=== PATIENT | male | born 1935 | race Caucasian/White ===

== ENCOUNTER 2017-01-18 19:15 | Inpatient (IN) | payer OTHER ==
--- NOTE | 2017-01-18 19:38 | CPEKG ---
Heart Rate: 61 RR Interval: 984 P-R Interval: 164 QRSD Interval: 92 QT Interval: 444 QTC Interval: 448 P Holland: 52 QRS Holland: 42 T Wave Holland: 19 EKG Severity - ABNORMAL ECG - EKG Impression: PACEMAKER SPIKES OR ARTIFACTS EKG Impression: SINUS RHYTHM Electronically Signed By: Nishant Segovia 19-Jan-2017 00:13:25
--- NOTE | 2017-01-18 19:50 | EDPHY ---
H & P Time Seen by Provider: 01/18/17 19:30 HPI/ROS: Chief complaint. Difficulty speaking HPI. 81-year-old male presents with 3 and 0.5 hours initially some speech difficulty and ataxia. Sudden onset this evening at about 5:00 p.m.. Denies chest discomfort or shortness of breath. No abdominal pain. No fever. Denies focal weakness to arms or legs. He felt he was ataxic with both legs. He had word-finding difficulty that it has now improved though he seems somewhat more hoarse than usual. ROS Constitutional. no fever/chills, no weakness Eyes. no problems with vision ENT. no sore throat, no nasal drainage. More hoarse than usual Cardiovascular. no chest pain Respiratory. no shortness of breath, no cough Abdominal. no abdominal pain, no nausea/vomiting, no diarrhea . no problems urinating MS. no calf pain/swelling, no neck/back pain, no joint pain Skin. no rash Lymph. no swollen glands Neuro. Word-finding difficulty, ataxia Past Medical/Surgical History: Denies past medical history. States he takes no medication. No allergies Social History: , nonsmoker, no alcohol Physical Exam: General Appearance: Alert well-developed male mild distress vital signs stable Eyes: Pupils equal and round no pallor or injection. ENT, Mouth: Mucous membranes are moist. Respiratory: There are no retractions, lungs are clear to auscultation. Cardiovascular: Regular rate and rhythm. Gastrointestinal: Abdomen is soft and nontender, no masses, bowel sounds normal. Neurological: Awake and alert, sensory and motor exams grossly normal. Speech is normal but hoarse. Cranial nerves appear to be intact. [id number] is basically intact although somewhat ataxic bilaterally. Vwup-pq-[id number] is intact. There is no pronator drift Skin: Warm and dry, no rashes. Musculoskeletal: Neck is supple nontender. Extremities symmetrical, full range of motion. Psychiatric: Patient is oriented X 3, there is no agitation. Constitutional: Initial Vital Signs Temperature (C) 36.6 C 01/18/17 19:15 Heart Rate 52 L 01/18/17 19:15 Respiratory Rate 14 01/18/17 19:15 Blood Pressure 222/110 H 01/18/17 19:15 O2 Sat (%) 93 01/18/17 19:15 O2 Delivery Mode Room Air Allergies/Adverse Reactions: No Known Allergies Allergy (Unverified 01/18/17 19:47) Home Medications: Medication Instructions Recorded NK [No Known Home Meds] 01/18/17 Medical Decision Making - Diagnostics EKG Interpretation: EKG interpreted by me shows a normal sinus rhythm normal interval and axis. QRS is normal there is no significant ST elevation or depression. No arrhythmia. The rate is 61 Imaging Results: Chest x-ray interpreted by me is unremarkable Noncontrast CT head shows intracranial bleed in the left basal ganglia Procedures: IV normal saline. Monitor. ED Course/Re-evaluation: On serial evaluations patient remains stable. The patient, his family and I discussed imaging and lab results. We discussed treatment plan including need for admission. They expressed understanding and agreement I consulted and discussed case with Dr. Hastings, hospitalist, who agrees to the admission I consulted and discussed the case with Dr. Fontaine, neurosurgery, who will see the patient in consultation Differential Diagnosis: I considered CVA, sepsis, acute coronary syndrome. The patient has an intracranial bleed. He has normal coagulation studies Critical Care Time: Critical care time exclusive procedures 40 minutes - Data Points Laboratory Results: Laboratory Results 01/18/17 19:40 01/18/17 19:40 Medications Given: Discontinued Medications Nicardipine/Sodium Chloride (Cardene 0.1 Mg/Ml (Premix)) 200 mls @ 0 mls/hr IV CONT FRANTZ; Titrate PRN Reason: Protocol Stop: 07/17/17 20:59 Last Admin: 01/18/17 21:09 Dose: 200 mls Nicardipine/Sodium Chloride (Cardene 0.1 Mg/Ml (Premix)) 200 mls @ 0 mls/hr IV CONT FRANTZ; Titrate PRN Reason: Protocol Stop: 07/17/17 23:29 Last Admin: 01/19/17 00:49 Dose: 200 mls Departure - Departure Disposition: [facility] Inpatient Acute Clinical Impression: Thalamic hemorrhage Condition: Fair
[2017-01-18 20:17] LABS: % IMMATURE GRANULYOCYTES 0.2 % (0.0-1.1); ABSOLUTE IMMATURE GRANULOCYTES 0.02 10^3/uL (0.00-0.10); ADD DIFF? NO; ADD MORPH? NO; ADD SCAN? NO; ATYPICAL LYMPHOCYTE FLAG 20 (0-99); FRAGMENT RBC FLAG 0 (0-99); HEMATOCRIT 49.3 % (40.0-51.0); HEMOGLOBIN 16.6 g/dL (13.7-17.5); LEFT SHIFT FLG 0 (0-99); LIPEMIA HEMOLYSIS FLAG 80 (0-99); MEAN CELL HEMOGLOBIN 29.9 pg (27.9-34.1); MEAN CELL HEMOGLOBIN CONCENTR. 33.7 g/dL (32.4-36.7); MEAN CELL VOLUME 88.8 fL (81.5-99.8); PLATELET CLUMPS FLAG 10 (0-99); PLATELET COUNT 219 10^3/uL (150-400); RED BLOOD CELL COUNT 5.55 10^6/uL (4.40-6.38); RED CELL DISTRIBUTION WIDTH 13.8 % (11.5-15.2)
[2017-01-18 20:20] LABS: INR 1.05 (0.83-1.16); PROTIME(PATIENT) 13.6 SEC (12.0-15.0)
[2017-01-18 20:27] LABS: ANION GAP 6 mEq/L (8-16); CALCIUM 8.9 mg/dL (8.5-10.4); CARBON DIOXIDE 28 mEq/l (22-31); CHLORIDE 103 mEq/L (97-110); CREATININE 0.8 mg/dL (0.7-1.3); GLOMERULAR FILTRATION RATE > 60; GLUCOSE 78 mg/dL (70-100); POTASSIUM 4.9 mEq/L (3.5-5.2); SODIUM 137 mEq/L (134-144); SPECIMEN HEMOLYSIS 158
[2017-01-18 20:39] LABS: TROPONIN I 0.027 ng/mL (0-0.034)
[2017-01-18] MEDS ORDERED: niCARdipine/NACL 200 ML IV SCH ×2 (21:00→23:30)
[2017-01-18] MEDS ORDERED: ACETAMINOPHEN 325 MG TAB PO PRN (21:06)
[2017-01-18] MEDS ORDERED: ONDANSETRON DISINTEGRATING 4 MG TAB PO PRN (21:06)
[2017-01-18] MEDS ORDERED: ONDANSETRON 4 MG/2 ML VIAL IVP PRN (21:06)
[2017-01-18] MEDS ORDERED: NS 1,000 ML IV SCH (21:15)
--- NOTE | 2017-01-18 21:28 | GHP ---
[f rep st] HISTORY AND PHYSICAL DATE OF ADMISSION: 01/18/2017 CHIEF COMPLAINT: Dizziness. HISTORY OF PRESENT ILLNESS: This is an 81-year-old male who has no documented past medical history. He has not seen a doctor in 3 or 4 years. He states that he suddenly developed dizziness about 4:30 this afternoon. This was not vertigo but more dizziness. He was listing to the right side and could not stand up per his family. He has also had some difficulty speaking as well. He denies any headache. He denies any focal weakness other than feeling weak in his legs. REVIEW OF SYSTEMS: A 10-point review of systems was obtained and negative. PAST MEDICAL HISTORY: None. MEDICATIONS: None. SOCIAL HISTORY: He does smoke. No alcohol. He has been for 60 something years. FAMILY HISTORY: Reviewed and negative. PHYSICAL EXAM: VITAL SIGNS: Afebrile, blood pressure is 222/110, heart rate 52 , oxygen saturation 93% on room air. GENERAL: The patient is well developed, in no apparent distress. HEENT: Nonicteric sclerae. Extraocular movements intact. Moist mucous membranes. NECK: Supple. No thyromegaly. LUNGS: Good effort. Clear to auscultation bilaterally. CARDIOVASCULAR: Regular rate and rhythm. No murmurs or gallops. ABDOMEN: Positive bowel sounds. Soft, nontender, nondistended. No hepatosplenomegaly. EXTREMITIES: No clubbing, cyanosis, or edema. SKIN: Without rash or intact. NEUROLOGIC: Alert and oriented x3. There is a slight dysarthria. Right facial droop is present. 5/ 5 manufacturing production technician strength bilaterally and plantar flexor strength. PSYCH: Normal mood and affect. LABORATORY DATA: CBC is normal. Coags: INR is negative. Chemistries normal. Troponin slightly elevated at 0.027. CT scan of the head shows a left basal ganglia bleed. EKG personally reviewed and interpreted no ischemic changes. ASSESSMENT: This is an 81-year-old male with a history of a basal ganglia bleed most likely hypertensive, and hypertensive emergency. 1. Left nasal ganglia bleed. Neurosurgery has been consulted. 2. Hypertensive emergency. The patient is being started on nicardipine drip currently. I am not sure what Neurosurgery . We will try to keep blood pressure at below 130s. CODE STATUS: Patient is a DNR. 35 minutes of critical care time spent /[id number]/MODL MTDD
--- NOTE | 2017-01-19 05:30 | GCON ---
[f rep st] CONSULTATION NEUROSURGERY CONSULT NOTE DATE OF CONSULTATION: 01/18/2017 The patient was seen and evaluated in ICU at [facility] at approximately 9:30 p.m. o n 01/18/2017. REASON FOR CONSULT: Thalamic hemorrhage. HISTORY OF PRESENT ILLNESS: The patient is an 81-year-old man who does not see a physician very oft en. He has smoked for more than 60 years. He does not take any medications at baseline. Apparentl y, approximately around 4:30 this afternoon, the patient developed some dizziness and trouble with h is balance. He was also having some trouble with his word finding. He did not have any headaches o r other obvious neurologic problems. He denies any chest pain, shortness of breath, abdominal pain, nausea, vomiting, or diarrhea. His family brought him into the hospital because of this acute oconnell ge. CT of the head was performed which revealed a small 9 mm left thalamic bleed with no surroundin g mass effect or edema. We were consulted for further management. Of note, his blood pressure in [facility] emergency department was 220 systolic. REVIEW OF SYSTEMS: A 10-point review of systems was negative, other than that described above in e HPI. PAST MEDICAL HISTORY: Positive for tobacco abuse, but otherwise none. ALLERGIES: None. MEDICATIONS: None. FAMILY HISTORY: No family history of brain hemorrhage or neurologic disease. SOCIAL HISTORY: The patient lives at home with his family. He has been to his for ove r 60 years. He is also smokes cigarettes over 60 years. He continues to smoke now and is not inter ested in quitting. He does not drink alcohol or use other drugs. PHYSICAL EXAM: He is afebrile. His blood pressure was 220/110, but is currently down to the 160s. His heart rate is 52, sats are 93% on room air. He is awake, alert, and oriented x3. His pupils a re equal, round, react to light. His extraocular movements are intact. Face is symmetric. His ton taj is midline. Currently his speech appears to be clear and fluent. He answers questions appropri ately and does not seem to have much word-finding difficulty currently. He has full 5/5 strength of his upper and lower limbs bilaterally. There is no pronator drift. His sensation is intact. He h as no dysmetria or dysdiadochokinesia. IMAGING REVIEW: CT of the head without contrast, reveals a small left thalamic hemorrhage with no s ignificant mass effect or surrounding edema. He has no hydrocephalus or other intracranial patholog y. RESULTS REVIEW: The white count is 8.0, hemoglobin 16.6, hematocrit 49.3, platelet count is 219,000 . His sodium is 137, potassium 4.9, BUN is 16, creatinine 0.8, glucose is 78. His PT is 13.6, INR 1.0. 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 He currently is asymptomatic as far as I can tell. It is possible that the symptoms that he had earlier were related more to his extremely high blood pressure than this small bleed. A t this point, we have recommended aggressive blood pressure management with a goal of less than 140 systolic and he is on a nicardipine drip currently. Would repeat his CT scan sometime in the [facility], just to be sure that it is stable, although if he has no clinical signs of deterioration, I suspe ct that it will very likely stay stable. I would hold on therapeutic anticoagulation if it were ind icated for any reason for 5-7 days, but if subcu heparin is indicated for DVT prophylaxis, I think t his would be fine starting tomorrow. Beyond this, I will appreciate the management of Internal Medi cine to assist with his blood pressure management and overall medical care. I did speak with him re garding smoking cessation, although he is not really interested in this at this time. We will see chuy middleton again tomorrow; however, I do not think he really has any major neurosurgical needs at this time. Please do not hesitate to contact us with any questions or concerns. /[id number]/MODL
[2017-01-19 05:58] LABS: % IMMATURE GRANULYOCYTES 0.4 % (0.0-1.1); ABSOLUTE IMMATURE GRANULOCYTES 0.04 10^3/uL (0.00-0.10); ADD DIFF? NO; ADD MORPH? NO; ADD SCAN? NO; ATYPICAL LYMPHOCYTE FLAG 0 (0-99); FRAGMENT RBC FLAG 0 (0-99); HEMATOCRIT 49.4 % (40.0-51.0); HEMOGLOBIN 16.9 g/dL (13.7-17.5); LEFT SHIFT FLG 0 (0-99); LIPEMIA HEMOLYSIS FLAG 90 (0-99); MEAN CELL HEMOGLOBIN 30.1 pg (27.9-34.1); MEAN CELL HEMOGLOBIN CONCENTR. 34.2 g/dL (32.4-36.7); MEAN CELL VOLUME 87.9 fL (81.5-99.8); MEAN PLATELET VOLUME 11.6 fL (8.7-11.7); PLATELET CLUMPS FLAG 10 (0-99); PLATELET COUNT 237 10^3/uL (150-400); RED BLOOD CELL COUNT 5.62 10^6/uL (4.40-6.38)
[2017-01-19 07:05] LABS: ANION GAP 7 mEq/L (8-16); CALCIUM 7.6 mg/dL (8.5-10.4); CARBON DIOXIDE 23 mEq/l (22-31); CHLORIDE 111 mEq/L (97-110); CREATININE 0.7 mg/dL (0.7-1.3); GLOMERULAR FILTRATION RATE > 60; GLUCOSE 93 mg/dL (70-100); POTASSIUM 3.5 mEq/L (3.5-5.2); SODIUM 141 mEq/L (134-144)
--- NOTE | 2017-01-19 09:37 | NEUSURGPN ---
Assessment/Plan: 81 y/o male with small left thalamic HTN hemorrhage -Neuro intact this morning -Head CT stable -PT/OT -Okay to to transfer to the floor if BP control. Needs medical management for BP control. -Discussed with Dr. Terrell, please notify SN with any change in neuro/motor exam Subjective: Denies any headaches, nausea, dizziness Objective: NAD CN II-XII grossly intact, EOMI, PERRLA A&Ox3 MAEx4 5/5 and equal in BUE and BLE Neurosurgery Physical Exam - Vitals, I&O, Labs I and O 01/18/17 01/19/17 01/20/17 05:59 05:59 05:59 Intake Total 1360 Output Total 400 Balance 960 Weight 70.307 kg Intake: IV Infused (ml) 1360 Ns 1,000 ml @ 75 mls/hr 630 IV CONT FRANTZ Rx#: [id number] niCARdipine/NACL 200 ml @ 230 Titrate IV CONT FRANTZ Rx#: [id number] Output: Urine (ml) 400 Urinal 400 Vital Signs Temp Pulse Resp BP Pulse Ox 36.6 C 54 L 14 157/73 H 100 01/19/17 08:00 01/19/17 08:00 01/19/17 08:00 01/19/17 08:00 01/19/17 08:00 Laboratory Results 01/19/17 05:45 01/19/17 06:30 ICD10 Worksheet Patient Problems: Problems Problem Status Onset Thalamic hemorrhage Acute - ICD10 Problem Qualifiers (1) Thalamic hemorrhage
--- NOTE | 2017-01-19 11:28 | HOSPPROG ---
Hospitalist Progress Note Assessment/Plan: Left thalamic hemorrhagic stroke - symptoms resolved, likely hypertensive. Not surgical. Goal BP <140 per neurosurgery. Off Nicardipine. -PT/OT, speech evals Hypertensive emergency - titrated off nicardipine drip overnight, sbp 150's this am. -start po lisinopril, up-titrate to goal -prn hydralazine, labetalol to maintain sbp <140 DNR Dispo - likely transfer to floor once it's clear his bp's are stable Subjective: Pt feels well. Denies araujo, vision changes, dizziness, CP or SOB. Objective: Vital Signs Temp Pulse Resp BP Pulse Ox 36.6 C 62 20 156/66 H 96 01/19/17 08:00 01/19/17 10:00 01/19/17 10:00 01/19/17 10:00 01/19/17 10:00 Laboratory Results 01/19/17 05:45 01/19/17 06:30 01/18/17 01/19/17 01/20/17 05:59 05:59 05:59 Intake Total 1360 Output Total 400 Balance 960 PT 13.6 SEC (12.0-15.0) 01/18/17 19:40 INR 1.05 (0.83-1.16) 01/18/17 19:40 - Physical Exam Constitutional: no apparent distress Eyes: PERRL Ears, Nose, Mouth, Throat: moist mucous membranes Cardiovascular: regular rate and rhythym Respiratory: no respiratory distress, clear to auscultation Gastrointestinal: normoactive bowel sounds, soft, non-tender abdomen Skin: warm Musculoskeletal: full muscle strength Psychiatric: interacting appropriately ICD10 Worksheet Patient Problems: Problems Problem Status Onset Thalamic hemorrhage Acute
[2017-01-19] MEDS: LISINOPRIL 2.5 MG TAB PO SCH (11:30)
[2017-01-19] MEDS: hydrALAZINE 25 MG TAB PO PRN ×2 (14:38→21:04)
[2017-01-19] MEDS ORDERED: LABETALOL HCL 50 MG/10 ML SYR IVP PRN (15:16)
[2017-01-19] MEDS: LABETALOL HCL 5 MG/ML 20 ML MDV IVP PRN (17:07)
--- NOTE | 2017-01-20 08:02 | NEUSURGPN ---
Assessment/Plan: Assessment: 81 y/o male with small left thalamic HTN hemorrhage-stable on repeat CT head Plan: -repeat CT head shows stable bleed noted -reviewed with Dr Terrell -Neuro intact this morning with no headache. Rested well last night -Head CT-no further scans needed on this hospital stay -recommend recheck in the office in 2-[address] weeks [address] head-please call office for an appt and we can arrange the CT rx at that time -PT/OT-CPM -NS to s/o per Dr Terrell -continue medical management for BP control -please notify NS with any change in neuro/motor exam Subjective: Awake and alert. NAD. Eating/drinking and voiding. No f/c/n/v/d. No araujo/neck/ cp/sob/abd or gu complaints. No f/c/n/v/d. Objective: AAO x 3, PERRLA/EOMI no droop CN 2-12 grossly intact +lt touch 5/5 BUE/BLE = Neuro Check Frequency: per routine Urinary Catheter in Place: No - Physician Discussed Patient with : Nid[facility] Neurosurgery Physical Exam - Vitals, I&O, Labs I and O 01/19/17 01/20/17 01/21/17 05:59 05:59 05:59 Intake Total 1360 1552 900 Output Total 400 400 Balance 960 1152 900 Weight 70.307 kg Intake: Oral (ml) 850 IV Infused (ml) 1360 702 900 Ns 1,000 ml @ 75 mls/hr 630 472 900 IV CONT FRANTZ Rx#: [id number] niCARdipine/NACL 200 ml @ 230 230 Titrate IV CONT FRANTZ Rx#: [id number] Output: Urine (ml) 400 400 Toilet 200 Urinal 400 200 Other: Intake Quantity Yes Sufficient Number of Voids Toilet 1 Urinal 1 Vital Signs Temp Pulse Resp BP Pulse Ox 36.9 C 81 18 129/65 H 93 01/20/17 04:55 01/20/17 04:55 01/20/17 04:55 01/20/17 04:55 01/20/17 04:55 Laboratory Results 01/19/17 05:45 01/19/17 06:30 ICD10 Worksheet Patient Problems: Problems Problem Status Onset Thalamic hemorrhage Acute
--- NOTE | 2017-01-20 09:55 | HOSPPROG ---
Hospitalist Progress Note Assessment/Plan: Mr Donnelly is an 81 y/o male who presented to the ER with dizziness and was noted to have bleed. Today is my first encounter w the patient, chart reviewed. Reviewed his care with Dr Miller who cared for him yesterday. *Small Left thalamic hemorrhagic, likely secondary to being hypertensive. Not surgical. Goal BP <140 per neurosurgery. Off Nicardipine. BP well managed today with low dose lisinopril PT/OT, recommendation is IP rehab patient will need a repeat CT of his brain in 2-4 weeks/ will need appt w neurosurgery * Hypertensive emergency - bp well managed today had been on nicardipine drip in the ICU -start po lisinopril -prn hydralazine, labetalol to maintain sbp <140 *Dysphagia ST working w him on dysphagia diet will get a video swallow prior to dc *hx of laryngeal cancer w radiation impacting the above *Nicotine dependence prefers no patch has decided to permanently stop smoking *Hypoxemia reviewed chest xray from a few days ago/nothing acute most likely secondary to atelectasis will order duonebs *Code status: DNR *DVT prophylaxis due to recent bleed, will order athrombics and feliciano garrett mobilize consider LMWH if he stays much longer due to being high risk Dispo -IP to evaluate Subjective: Carlos is feeling well/ no complaints. Objective: Vital Signs Temp Pulse Resp BP Pulse Ox 37.0 C 59 L 18 134/78 H 91 L 01/20/17 08:00 01/20/17 08:00 01/20/17 08:00 01/20/17 08:00 01/20/17 08:00 Laboratory Results 01/19/17 05:45 01/19/17 06:30 01/19/17 01/20/17 01/21/17 05:59 05:59 05:59 Intake Total 1360 1552 900 Output Total 400 400 500 Balance 960 1152 400 PT 13.6 SEC (12.0-15.0) 01/18/17 19:40 INR 1.05 (0.83-1.16) 01/18/17 19:40 - Physical Exam Constitutional: chronically ill appearing Eyes: PERRL Ears, Nose, Mouth, Throat: hearing normal Cardiovascular: regular rate and rhythym Respiratory: no respiratory distress, reduced air movement Gastrointestinal: normoactive bowel sounds Skin: warm Musculoskeletal: no muscle tenderness Neurologic: AAOx3, sensation intact bilaterally, No facial droop Psychiatric: interacting appropriately, not anxious, not encephalopathic ICD10 Worksheet Patient Problems: Problems Problem Status Onset Thalamic hemorrhage Acute
[2017-01-20] MEDS: LISINOPRIL 2.5 MG TAB PO SCH (10:56)
[2017-01-20] MEDS: hydrALAZINE 25 MG TAB PO PRN (15:45)
[2017-01-20] MEDS ORDERED: PNEUMOC 13-VAL CONJ-DIP CRM/PF 0.5 ML SYR IM ONE (16:10)
[2017-01-20] MEDS: LABETALOL HCL 5 MG/ML 20 ML MDV IVP PRN (16:45)
[2017-01-20] MEDS: IPRATROPIUM/ALBUTEROL 3 ML DEYVIAL IH SCH (19:21)
[2017-01-21] MEDS: hydrALAZINE 25 MG TAB PO PRN (02:50)
[2017-01-21] MEDS: IPRATROPIUM/ALBUTEROL 3 ML DEYVIAL IH SCH ×4 (06:19→16:27)
[2017-01-21] MEDS: LISINOPRIL 2.5 MG TAB PO SCH (09:09)
--- NOTE | 2017-01-21 11:07 | HOSPPROG ---
Hospitalist Progress Note Assessment/Plan: Mr Donnelly is an 81 y/o male who presented to the ER with dizziness and was noted to have bleed. *Small Left thalamic hemorrhagic, likely secondary to being hypertensive. Not surgical. Goal BP <140 per neurosurgery. Off Nicardipine. increased dose of lisinopril /added Norvasc for qhs for better control ( parameters placed to when to hold) PT/OT, recommendation is IP rehab patient will need a repeat CT of his brain in 2-4 weeks/ will need appt w neurosurgery * Hypertensive emergency - bp much improved had been on nicardipine drip in the ICU -lisinopril and Norvasc *bradycardia will dc prn labetalol *Dysphagia ST working w him on dysphagia diet will get a video swallow prior to dc *hx of laryngeal cancer w radiation impacting the above *Nicotine dependence prefers no patch has decided to permanently stop smoking *Hypoxemia reviewed chest xray from a few days ago/nothing acute most likely secondary to atelectasis will order duonebs *Code status: DNR *DVT prophylaxis LMWH Dispo -IP to evaluate Subjective: Carlos is feeling well/ no complaints. Objective: Vital Signs Temp Pulse Resp BP Pulse Ox 36.7 C 53 L 18 142/66 H 87 L 01/21/17 08:00 01/21/17 08:00 01/21/17 08:00 01/21/17 09:09 01/21/17 09:23 Laboratory Results 01/19/17 05:45 01/19/17 06:30 01/20/17 01/21/17 01/22/17 05:59 05:59 05:59 Intake Total 1552 1950 Output Total 400 950 Balance 1152 1000 PT 13.6 SEC (12.0-15.0) 01/18/17 19:40 INR 1.05 (0.83-1.16) 01/18/17 19:40 - Physical Exam Constitutional: no apparent distress, appears nourished Eyes: PERRL Ears, Nose, Mouth, Throat: hearing normal Cardiovascular: regular rate and rhythym Respiratory: no respiratory distress, reduced air movement Gastrointestinal: normoactive bowel sounds Skin: warm Musculoskeletal: generalized weakness Neurologic: AAOx3, No facial droop Psychiatric: interacting appropriately, not anxious, not encephalopathic, thought process linear ICD10 Worksheet Patient Problems: Problems Problem Status Onset Thalamic hemorrhage Acute
[2017-01-21] MEDS: ENOXAPARIN 40 MG/0.4 ML SYR SC SCH (13:39)
[2017-01-22] MEDS: IPRATROPIUM/ALBUTEROL 3 ML DEYVIAL IH SCH ×5 (05:24→23:46)
[2017-01-22] MEDS: LISINOPRIL 2.5 MG TAB PO SCH (09:19)
[2017-01-22] MEDS: ENOXAPARIN 40 MG/0.4 ML SYR SC SCH (09:20)
[2017-01-22] MEDS: hydrALAZINE 20 MG/ML VIAL IVP SCH ×2 (12:57→17:40)
--- NOTE | 2017-01-22 13:07 | HOSPPROG ---
Hospitalist Progress Note Assessment/Plan: Mr Donnelly is an 81 y/o male who presented to the ER with dizziness and was noted to have bleed. This is my first encounter with this patient. Chart reviewed. D/W IR. *Small Left thalamic hemorrhagic, likely secondary to being hypertensive. Not surgical. Goal BP <140 per neurosurgery. Off Nicardipine. lisinopril /Norvasc for qhs for better control give IV due to aspiration PT/OT, recommendation is IP rehab patient will need a repeat CT of his brain in 2-4 weeks/ will need appt w neurosurgery * Hypertensive emergency - bp much improved had been on nicardipine drip in the ICU -lisinopril and Norvasc *bradycardia will dc prn labetalol *Dysphagia ST working w him video swallow shows aspiration rec PEG tube D/W pt and family order IR consult *hx of laryngeal cancer w radiation impacting the above *Nicotine dependence prefers no patch has decided to permanently stop smoking *Hypoxemia most likely secondary to atelectasis duonebs watch for signs of PNA due to aspiration *Code status: DNR *DVT prophylaxis LMWH Dispo -IP to evaluate, PEG tube placement Subjective: Feels ok today. No pain currently. Questions about PEG. at bedside. Objective: Vital Signs Temp Pulse Resp BP Pulse Ox 36.6 C 53 L 14 146/71 H 97 01/22/17 12:00 01/22/17 12:00 01/22/17 12:00 01/22/17 12:57 01/22/17 12:00 Laboratory Results 01/19/17 05:45 01/19/17 06:30 01/21/17 01/22/17 01/23/17 05:59 05:59 05:59 Intake Total 1950 800 Output Total 950 Balance 1000 800 PT 13.6 SEC (12.0-15.0) 01/18/17 19:40 INR 1.05 (0.83-1.16) 01/18/17 19:40 - Physical Exam Constitutional: not in pain, chronically ill appearing, cachectic Eyes: PERRL, anicteric sclera, EOMI Ears, Nose, Mouth, Throat: moist mucous membranes, hearing normal, ears appear normal Cardiovascular: No JVD, No tachycardia, No edema Respiratory: no respiratory distress, no rales or rhonchi, reduced air movement Gastrointestinal: No tenderness, No ascites, No guarding Skin: warm, normal color, No erythema Musculoskeletal: no joint effusions, abnormal gait, generalized weakness Neurologic: AAOx3 Psychiatric: interacting appropriately, not anxious, not encephalopathic ICD10 Worksheet Patient Problems: Problems Problem Status Onset Thalamic hemorrhage Acute
[2017-01-23] MEDS: hydrALAZINE 20 MG/ML VIAL IVP SCH ×4 (01:34→17:32)
[2017-01-23] MEDS: IPRATROPIUM/ALBUTEROL 3 ML DEYVIAL IH SCH ×3 (06:01→16:34)
[2017-01-23] MEDS ORDERED: HYDROmorphONE/DILAUDID 1 MG/ML SYR IVP PRN (09:31)
[2017-01-23] MEDS ORDERED: BISACODYL 10 MG SUPP PR PRN (09:31)
[2017-01-23] MEDS ORDERED: POLYETHYLENE GLYCOL 3350 17 GM PKT PO PRN (09:31)
[2017-01-23] MEDS ORDERED: MAGNESIUM HYDROXIDE 30 ML UDCUP PO PRN (09:31)
[2017-01-23] MEDS ORDERED: LACTULOSE 20 GM/30 ML UDCUP PO PRN (09:31)
[2017-01-23] MEDS ORDERED: GLUCAGON,HUMAN RECOMBINANT 1 MG VIAL ONE (10:27)
[2017-01-23] MEDS ORDERED: LIDOCAINE 2% JELLY 20 ML (UROJECT) ONE (10:28)
[2017-01-23] MEDS ORDERED: fentaNYL 100 MCG/2 ML INJ ONE (10:28)
[2017-01-23] MEDS ORDERED: MIDAZOLAM 2 MG/2 ML VIAL ONE (10:28)
[2017-01-23] MEDS ORDERED: LIDOCAINE 1% 30 ML SDV ONE (11:06)
[2017-01-23] MEDS ORDERED: IOPAMIDOL (ISOVUE-300) 100 ML BTL IV ONE (11:06)
--- NOTE | 2017-01-23 11:23 | POSTOPPROG ---
Post Op Note Date of Operation: 01/23/17 Surgeon: Carlos Ribeiro Anesthesia: IV Sedation Pre-op Diagnosis: Hemorrhagic stroke, left basal ganglia Post-op Diagnosis: same Indication: aspiration Procedure: Percutaneous Gastrostomy Findings: 20 F BIN balloon gastrostomy tube in good position, ready to use. Inf/Abcess present in the surg proc area at time of surgery?: No EBL: Minimal Total fluids administered: 0 Complications: 0
--- NOTE | 2017-01-23 11:28 | HOSPPROG ---
Hospitalist Progress Note Assessment/Plan: Mr Donnelly is an 81 y/o male who presented to the ER with dizziness and was noted to have bleed. *Small Left thalamic hemorrhagic, likely secondary to being hypertensive. Not surgical. Goal BP <140 per neurosurgery. Off Nicardipine. lisinopril /Norvasc for qhs for better control give IV due to aspiration PT/OT, recommendation is IP rehab patient will need a repeat CT of his brain in 2-4 weeks/ will need appt w neurosurgery * Hypertensive emergency - bp much improved had been on nicardipine drip in the ICU -lisinopril and Norvasc *bradycardia will dc prn labetalol *Dysphagia ST working w him video swallow shows aspiration PEG tube today with IR D/W pt and family *hx of laryngeal cancer w radiation impacting the above *Nicotine dependence prefers no patch has decided to permanently stop smoking *Hypoxemia most likely secondary to atelectasis duonebs watch for signs of PNA due to aspiration *Code status: DNR *DVT prophylaxis LMWH Dispo -IP to evaluate, PEG tube placement Subjective: Feeling tired today. Ready for PEG tube. No questions. at bedside. Objective: Vital Signs Temp Pulse Resp BP Pulse Ox 36.6 C 69 14 130/62 H 96 01/23/17 07:26 01/23/17 07:26 01/23/17 07:26 01/23/17 07:26 01/23/17 07:26 Laboratory Results 01/19/17 05:45 01/19/17 06:30 01/22/17 01/23/17 01/24/17 05:59 05:59 05:59 Intake Total 800 500 100 Output Total 175 Balance 800 325 100 PT 13.6 SEC (12.0-15.0) 01/18/17 19:40 INR 1.05 (0.83-1.16) 01/18/17 19:40 - Physical Exam Constitutional: not in pain, chronically ill appearing, cachectic Eyes: PERRL, anicteric sclera, EOMI Ears, Nose, Mouth, Throat: moist mucous membranes, hearing normal, ears appear normal Cardiovascular: No JVD, No tachycardia, No edema Respiratory: no respiratory distress, reduced air movement Gastrointestinal: No tenderness, No ascites Skin: warm, normal color, No erythema Musculoskeletal: muscular tenderness, generalized weakness Neurologic: AAOx3 Psychiatric: interacting appropriately, not anxious, not encephalopathic ICD10 Worksheet Patient Problems: Problems Problem Status Onset Thalamic hemorrhage Acute
--- NOTE | 2017-01-23 15:24 | CPEKG ---
Heart Rate: 62 RR Interval: 968 P-R Interval: 160 QRSD Interval: 94 QT Interval: 412 QTC Interval: 419 P [place]: 61 QRS [place]: 63 T Wave [place]: 12 EKG Severity - NORMAL ECG - EKG Impression: SINUS RHYTHM Electronically Signed By: Miky Ross 25-Jan-2017 08:01:36
[2017-01-23] MEDS: ENALAPRILAT DIHYDRATE 1.25 MG/ML VIAL IVP PRN (15:38)
[2017-01-23 16:20] LABS: CREATINE KINASE-MB FRACTION 0.41 ng/mL (0-3.19); TROPONIN I < 0.012 ng/mL (0-0.034)
[2017-01-23] MEDS: SENNOSIDES/DOCUSATE SODIUM TAB PO SCH (20:55)
[2017-01-23] MEDS: D5W 1/2 NS 1,000 ML IV SCH (22:55)
[2017-01-24] MEDS: IPRATROPIUM/ALBUTEROL 3 ML DEYVIAL IH SCH ×4 (00:18→17:46)
[2017-01-24] MEDS: hydrALAZINE 20 MG/ML VIAL IVP SCH ×4 (00:57→17:55)
--- NOTE | 2017-01-24 09:16 | HOSPPROG ---
Hospitalist Progress Note Assessment/Plan: Mr Donnelly is an 81 y/o male who presented to the ER with dizziness and was noted to have bleed. *Small Left thalamic hemorrhagic, likely secondary to being hypertensive. Not surgical. Goal BP <140 per neurosurgery. Off Nicardipine. increased dose of lisinopril /added Norvasc for qhs for better control ( parameters placed to when to hold) PT/OT, recommendation is IP rehab patient will need a repeat CT of his brain in 2-4 weeks/ will need appt w neurosurgery * Hypertensive emergency - bp much improved had been on nicardipine drip in the ICU -lisinopril and Norvasc *bradycardia will dc prn labetalol *Dysphagia s/p peg placement *Left ankle pain and righ knee pain hx of gout will get xray of left ankle/diff w walking trial of allopurinol *hx of laryngeal cancer w radiation impacting the above *Nicotine dependence prefers no patch has decided to permanently stop smoking *Hypoxemia reviewed chest xray from a few days ago/nothing acute most likely secondary to atelectasis will order duonebs *Code status: DNR *DVT prophylaxis LMWH Dispo:pending Subjective: Carlos has no c/o pain. Gets frustrated with shaving his face. Objective: Vital Signs Temp Pulse Resp BP Pulse Ox 36.8 C 75 18 150/70 H 94 01/24/17 08:18 01/24/17 08:18 01/24/17 08:18 01/24/17 08:18 01/24/17 08:18 Laboratory Results 01/19/17 05:45 01/19/17 06:30 01/23/17 01/24/17 01/25/17 05:59 05:59 05:59 Intake Total 500 100 Output Total 175 350 Balance 325 -250 PT 13.6 SEC (12.0-15.0) 01/18/17 19:40 INR 1.05 (0.83-1.16) 01/18/17 19:40 - Physical Exam Constitutional: not in pain, chronically ill appearing Eyes: PERRL Ears, Nose, Mouth, Throat: hearing normal Cardiovascular: regular rate and rhythym Respiratory: no respiratory distress Gastrointestinal: normoactive bowel sounds Skin: warm Musculoskeletal: no muscle tenderness Neurologic: AAOx3 Psychiatric: interacting appropriately, not anxious ICD10 Worksheet Patient Problems: Problems Problem Status Onset Thalamic hemorrhage Acute
[2017-01-24] MEDS: ENALAPRILAT DIHYDRATE 1.25 MG/ML VIAL IVP PRN (09:18)
[2017-01-24] MEDS: SENNOSIDES/DOCUSATE SODIUM TAB PO SCH ×2 (09:26→20:26)
[2017-01-24] MEDS: D5W 1/2 NS 1,000 ML IV SCH (09:46)
[2017-01-24] MEDS: ALLOPURINOL 100 MG TAB PO SCH (17:03)
[2017-01-25] MEDS: hydrALAZINE 20 MG/ML VIAL IVP SCH ×3 (00:02→13:45)
[2017-01-25] MEDS: IPRATROPIUM/ALBUTEROL 3 ML DEYVIAL IH SCH ×4 (01:12→17:22)
[2017-01-25] MEDS: ENALAPRILAT DIHYDRATE 1.25 MG/ML VIAL IVP PRN (01:16)
[2017-01-25] MEDS: hydrALAZINE 25 MG TAB PO PRN (01:55)
[2017-01-25 05:27] LABS: % IMMATURE GRANULYOCYTES 0.7 % (0.0-1.1); ABSOLUTE IMMATURE GRANULOCYTES 0.08 10^3/uL (0.00-0.10); ADD DIFF? NO; ADD MORPH? NO; ADD SCAN? NO; ATYPICAL LYMPHOCYTE FLAG 10 (0-99); FRAGMENT RBC FLAG 10 (0-99); HEMOGLOBIN 14.4 g/dL (13.7-17.5); LEFT SHIFT FLG 0 (0-99); LIPEMIA HEMOLYSIS FLAG 80 (0-99); MEAN CELL HEMOGLOBIN 30.1 pg (27.9-34.1); MEAN CELL HEMOGLOBIN CONCENTR. 33.5 g/dL (32.4-36.7); MEAN PLATELET VOLUME 11.8 fL (8.7-11.7); PLATELET CLUMPS FLAG 10 (0-99); PLATELET COUNT 202 10^3/uL (150-400); RED BLOOD CELL COUNT 4.78 10^6/uL (4.40-6.38); RED CELL DISTRIBUTION WIDTH 13.7 % (11.5-15.2)
[2017-01-25 05:35] LABS: ANION GAP 7 mEq/L (8-16); CALCIUM 9.1 mg/dL (8.5-10.4); CARBON DIOXIDE 26 mEq/l (22-31); CHLORIDE 104 mEq/L (97-110); CREATININE 0.8 mg/dL (0.7-1.3); GLOMERULAR FILTRATION RATE > 60; GLUCOSE 131 mg/dL (70-100); POTASSIUM 3.6 mEq/L (3.5-5.2); SODIUM 137 mEq/L (134-144); URIC ACID 6.1 mg/dL (3.5-8.5)
[2017-01-25] MEDS ORDERED: hydrALAZINE 20 MG/ML VIAL IVP ONE (06:08)
[2017-01-25] MEDS: ENOXAPARIN 40 MG/0.4 ML SYR SC SCH (08:30)
[2017-01-25] MEDS: ALLOPURINOL 100 MG TAB PO SCH (08:30)
[2017-01-25] MEDS: SENNOSIDES/DOCUSATE SODIUM TAB PO SCH (08:31)
[2017-01-25] MEDS: LISINOPRIL 2.5 MG TAB PO SCH (10:44)
--- NOTE | 2017-01-25 11:52 | HOSPPROG ---
Hospitalist Progress Note Assessment/Plan: Mr Donnelly is an 81 y/o male who presented to the ER with dizziness and was noted to have bleed. *Small Left thalamic hemorrhagic, likely secondary to being hypertensive. Not surgical. Goal BP <140 per neurosurgery. lisinopril + norvasc, will cont prn hydralazine patient will need a repeat CT of his brain in 2-4 weeks/ will need appt w neurosurgery * Hypertensive emergency - bp much improved had been on nicardipine drip in the ICU -lisinopril and Norvasc *bradycardia will dc prn labetalol *Dysphagia s/p peg placement *Left ankle pain and right knee pain ankle xray showed nothing acute *Gout suspect that is the etiology of left ankle pain and right knee has had this in the past trial of colchicine and ibuprofen spoke with neurosurgery and they are fine with these medications *hx of laryngeal cancer w radiation impacting the above *Nicotine dependence prefers no patch has decided to permanently stop smoking *Hypoxemia reviewed chest xray from a few days ago/nothing acute most likely secondary to atelectasis will order duonebs *Code status: DNR *DVT prophylaxis LMWH Dispo: pending Subjective: Carlos is c/o severe left ankle pain. Objective: Vital Signs Temp Pulse Resp BP Pulse Ox 37.2 C 73 16 115/56 L 94 01/25/17 11:34 01/25/17 11:34 01/25/17 11:34 01/25/17 11:34 01/25/17 11:34 Laboratory Results 01/25/17 04:57 01/25/17 04:57 01/24/17 01/25/17 01/26/17 05:59 05:59 05:59 Intake Total 100 1198 Output Total 350 275 Balance -250 923 PT 13.6 SEC (12.0-15.0) 01/18/17 19:40 INR 1.05 (0.83-1.16) 01/18/17 19:40 - Physical Exam Constitutional: chronically ill appearing, uncomfortable, No not in pain Eyes: PERRL Ears, Nose, Mouth, Throat: hearing normal, poor dentition, other (significant halitosis) Cardiovascular: regular rate and rhythym, no murmur, rub, or gallop Respiratory: no respiratory distress Gastrointestinal: normoactive bowel sounds Skin: warm, normal color Musculoskeletal: generalized weakness Neurologic: AAOx3 Psychiatric: interacting appropriately, not anxious ICD10 Worksheet Patient Problems: Problems Problem Status Onset Thalamic hemorrhage Acute
[2017-01-25] MEDS ORDERED: IBUPROFEN SUSP 100 MG/5 ML UDCUP TUBE PRN (13:21)
[2017-01-25] MEDS ORDERED: COLCHICINE 0.6 MG CAP/TAB PO SCH (13:30)
[2017-01-25] MEDS ORDERED: ACETAMINOPHEN 325 MG TAB TUBE PRN (14:07)
[2017-01-25] MEDS ORDERED: hydrALAZINE 25 MG TAB TUBE PRN (14:12)
[2017-01-25] MEDS ORDERED: LACTULOSE 20 GM/30 ML UDCUP TUBE PRN (14:12)
[2017-01-25] MEDS ORDERED: ONDANSETRON DISINTEGRATING 4 MG TAB TUBE PRN (14:13)
[2017-01-25] MEDS ORDERED: MAGNESIUM HYDROXIDE 30 ML UDCUP TUBE PRN (14:13)
[2017-01-25] MEDS: SENNOSIDES 17.6 MG/10 ML UDL - IF LIQUID ORDERED TUBE SCH (20:10)
[2017-01-25] MEDS ORDERED: IPRATROPIUM/ALBUTEROL 3 ML DEYVIAL IH PRN (23:12)
[2017-01-26] MEDS: ENALAPRILAT DIHYDRATE 1.25 MG/ML VIAL IVP PRN (01:54)
[2017-01-26] MEDS ORDERED: hydrALAZINE 20 MG/ML VIAL IVP PRN (03:10)
[2017-01-26] MEDS: LISINOPRIL 5 MG TAB TUBE SCH (08:36)
[2017-01-26] MEDS: SENNOSIDES 17.6 MG/10 ML UDL - IF LIQUID ORDERED TUBE SCH ×2 (08:37→21:38)
[2017-01-26] MEDS: ENOXAPARIN 40 MG/0.4 ML SYR SC SCH (08:51)
[2017-01-26] MEDS: ALLOPURINOL 100 MG TAB TUBE SCH (08:52)
[2017-01-26] MEDS ORDERED: COLCHICINE 0.6 MG CAP/TAB TUBE SCH (09:00)
--- NOTE | 2017-01-26 12:35 | HOSPPROG ---
Hospitalist Progress Note Assessment/Plan: Mr Donnelly is an 81 y/o male who presented to the ER with dizziness and was noted to have bleed. *Small Left thalamic hemorrhagic, likely secondary to being hypertensive. Not surgical. Goal BP <140 per neurosurgery. lisinopril + norvasc, will cont prn hydralazine patient will need a repeat CT of his brain in 2-4 weeks/ will need appt w neurosurgery * Hypertensive emergency - bp much improved had been on nicardipine drip in the ICU -lisinopril and Norvasc *bradycardia will dc prn labetalol *Dysphagia s/p peg placement *Left ankle pain and right knee pain ankle xray showed nothing acute *Gout suspect that is the etiology of left ankle pain and right knee has had this in the past will ask Dr Horton to r/o any infectious etiology neurosurgery ok w prednisone, colchicine and ibuprofen *loose stools on jevity but colchicine can cause this/ will dc *hx of laryngeal cancer w radiation impacting the above *Nicotine dependence prefers no patch has decided to permanently stop smoking *Hypoxemia reviewed chest xray from a few days ago/nothing acute family concerned/ on less O2/ will get a f/u chest xray most likely secondary to atelectasis will order duonebs *Code status: DNR *DVT prophylaxis LMWH Dispo: pending Subjective: Carlos said his left ankle/heel of left foot is too painful and he can't stand. Objective: Vital Signs Temp Pulse Resp BP Pulse Ox 37.1 C 72 21 H 134/56 H 93 01/26/17 11:54 01/26/17 11:54 01/26/17 11:54 01/26/17 11:54 01/26/17 11:54 Laboratory Results 01/25/17 04:57 01/25/17 04:57 01/25/17 01/26/17 01/27/17 05:59 05:59 05:59 Intake Total 1198 970 Output Total 275 200 150 Balance 923 770 -150 PT 13.6 SEC (12.0-15.0) 01/18/17 19:40 INR 1.05 (0.83-1.16) 01/18/17 19:40 - Physical Exam Constitutional: chronically ill appearing, uncomfortable, No not in pain Eyes: PERRL Ears, Nose, Mouth, Throat: hard of hearing Cardiovascular: regular rate and rhythym Respiratory: no respiratory distress, reduced air movement Gastrointestinal: normoactive bowel sounds Skin: warm Musculoskeletal: generalized weakness Neurologic: AAOx3 Psychiatric: interacting appropriately, not anxious ICD10 Worksheet Patient Problems: Problems Problem Status Onset Thalamic hemorrhage Acute
[2017-01-26] MEDS ORDERED: predniSONE 20 MG TAB PO SCH (18:00)
--- NOTE | 2017-01-26 19:20 | GCON ---
[f rep st] CONSULTATION DATE OF CONSULTATION: 01/26/2017 REFERRING PHYSICIAN: Shabnam Gupta NP REASON FOR CONSULTATION: Multifocal joint pain, assess for infectious etiology. HISTORY OF PRESENT ILLNESS: Patient is an 81-year-old male with a past medical history of gout who was admitted with a left-sided thalamic hemorrhage whom I am asked to see in consultation for multif ocal joint pain with concern for infection versus polyarticular gout. The patient was initially adm itted with hypertensive urgency and a left-sided thalamic hemorrhage on 01/18/2017. Over the last s everal days, patient has complained of joint pain. This initially began in the left ankle and subse quently affected the right knee, and now has spread to involve the left knee and right foot as well. He is undergoing presumptive treatment for gout with colchicine and nonsteroidal agents. He does not feel like these have led any symptom relief. His pain is such that he does not want to bear abram ght. He has not experienced symptoms this severe with previous gout. He has not experienced fevers or chills. He does have a weak cough and has been documented to aspirate which required PEG tube p lacement. He does not complain of shortness of breath. He has been maintained off antibiotic thera py. Given the above findings of multifocal joint pain, I am now asked to assist in the patient's on going management. PAST MEDICAL HISTORY: Gout, laryngeal cancer, hypertension. PAST SURGICAL HISTORY: Treatment of laryngeal cancer. CURRENT MEDICATIONS: Colchicine 0.6 mg p.o. daily, allopurinol 100 mg p.o. daily, DuoNeb b.i.d., No rvasc 2.5 mg p.o. q.h.s., Lovenox 40 mg subcu daily, Motrin 400 mg p.o. q.6 hours as needed. ALLERGIES: No known drug allergies. SOCIAL HISTORY: Patient smokes 1 pack per day. No alcohol use. No drug use. FAMILY HISTORY: Noncontributory. REVIEW OF SYSTEMS: Outside that noted in HPI, remainder of 10-system review is unremarkable. PHYSICAL EXAMINATION: VITAL SIGNS: Temperature 37.1, heart rate 68, respiratory rate 18, blood pre ssure 134/62, oxygen saturation 95% on 2 L. GENERAL: Patient is chronically ill-appearing, in no a cute distress. He appears nontoxic. HEENT: There are significant oropharyngeal secretions. Patie nt has a weak cough and weak voice. There is no thrush. There is no nasal discharge. There is no tenderness over the sinuses. NECK: Supple without palpable lymphadenopathy or thyromegaly. CHEST: Occasional crackles. Otherwise clear to auscultation bilaterally without adventitious sounds. Th e respiratory effort is normal. CARDIOVASCULAR: Regular rate and rhythm without murmurs, gallops, or rubs. ABDOMEN: Soft, nontender, nondistended. There is no palpable organomegaly. MUSCULOSKELE ELIDA: There is tenderness over the left ankle with slight edema of the ankle and faint erythema over the ankle; there is pain with range of motion of the great toe and ankle; there is also tenderness over the left knee without effusion or erythema; the right knee is tender with movement or palpation with mild edema but no overt effusion; the right ankle is tender to palpation. With range of motio n. SKIN: There are no stigmata of endocarditis. Skin is warm and dry to touch. NEUROLOGIC: Izzy ent is alert and interacts appropriately with examiner. Cranial nerves 2-12 are grossly intact. Se nsation is grossly intact. LYMPHATICS: There are no cervical or supraclavicular nodes. There are bilateral shotty inguinal nodes without lymphangitis. LABORATORY DATA: White blood cell count 11.0, hematocrit 43.0, platelets 202, neutrophils 83%. Ser um creatinine is 0.8. Chest x-ray shows bibasilar infiltrates or atelectasis. Prior video swallow shows evidence of aspiration. 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 I do not suspect this is related to multifocal septic arthritis. 2. Pulmonary infiltrates: Suspect related to aspiration. No overt other clinical findings of pneu monia. Favor observation off antibiotics rather than antibiotic therapy at this point in time. RECOMMENDATIONS: 1. Continued therapy of gout through hospitalist service; if no neurosurgical contraindication, cou ld consider prednisone given lack of relief with colchicine and nonsteroidal agents. 2. Observe off antibiotics. 3. Follow clinical response to above measures. Thank you for this consultation. /[id number]/MODL
[2017-01-27 04:18] VITALS: TEMP 98.6
[2017-01-27 07:56] VITALS: BP 132/59; PULSE 75; RESP 14; O2SAT 88
[2017-01-27] MEDS ORDERED: predniSONE 20 MG TAB PO SCH (08:31)
[2017-01-27] MEDS ORDERED: predniSONE 20 MG TAB TUBE SCH (09:30)
[2017-01-27] MEDS: LISINOPRIL 5 MG TAB TUBE SCH (10:12)
[2017-01-27] MEDS: ALLOPURINOL 100 MG TAB TUBE SCH (10:12)
[2017-01-27] MEDS: ENOXAPARIN 40 MG/0.4 ML SYR SC SCH (10:13)
--- NOTE | 2017-01-27 10:58 | HOSPPROG ---
Hospitalist Progress Note Assessment/Plan: Mr Donnelly is an 81 y/o male who presented to the ER with dizziness and was noted to have bleed. *Small Left thalamic hemorrhagic, likely secondary to being hypertensive. Not surgical. Goal BP <140 per neurosurgery. lisinopril + norvasc, will cont prn hydralazine patient will need a repeat CT of his brain in 2-4 weeks/ will need appt w neurosurgery * Hypertensive emergency - bp much improved had been on nicardipine drip in the ICU -lisinopril and Norvasc *bradycardia will dc prn labetalol *Dysphagia s/p peg placement *Left ankle pain and right knee pain ankle xray showed nothing acute *Gout suspect that is the etiology of left ankle pain and right knee much improved w Prednisone/ pain is much better today *loose stools on jevity dc colchicine *hx of laryngeal cancer w radiation impacting the above *Nicotine dependence prefers no patch has decided to permanently stop smoking *Hypoxemia reviewed chest xray from a few days ago/nothing acute family concerned/ on less O2/ will get a f/u chest xray most likely secondary to atelectasis will order duonebs *Code status: DNR *DVT prophylaxis LMWH Dispo: dc today to Subjective: Mr Donnelly is feeling well/ happy, no complaints. Objective: Vital Signs Temp Pulse Resp BP Pulse Ox 37.0 C 75 14 132/59 H 88 L 01/27/17 04:00 01/27/17 07:55 01/27/17 07:55 01/27/17 10:12 01/27/17 07:55 Laboratory Results 01/25/17 04:57 01/25/17 04:57 01/26/17 01/27/17 01/28/17 05:59 05:59 05:59 Intake Total 970 717 Output Total 200 150 Balance 770 567 PT 13.6 SEC (12.0-15.0) 01/18/17 19:40 INR 1.05 (0.83-1.16) 01/18/17 19:40 - Physical Exam Constitutional: not in pain, chronically ill appearing Eyes: PERRL Ears, Nose, Mouth, Throat: hearing normal, poor dentition Cardiovascular: regular rate and rhythym Respiratory: no respiratory distress, rhonchi (few loose at bases) Gastrointestinal: normoactive bowel sounds Skin: warm Musculoskeletal: muscular tenderness, generalized weakness Neurologic: AAOx3 Psychiatric: interacting appropriately, not anxious ICD10 Worksheet Patient Problems: Problems Problem Status Onset Thalamic hemorrhage Acute
--- NOTE | 2017-01-27 11:10 | PDIAF ---
- Diagnosis Diagnosis: left thalamaic hemorrhage/ htn/severe gout Code Status: Do Not Resuscitate - Medication Management Discharge Medications: Medications to Continue on Transfer Allopurinol [Allopurinol 100 MG (*)] 100 mg TUBE DAILY tab 01/27/17 [Last Taken Unknown] Ipratropium/Albuterol [Duoneb (*)] 3 ml IH BID PRN #0 deyvial 01/27/17 [Last Taken Unknown] Lisinopril [Zestril 5 mg (*)] 5 mg TUBE DAILY tab 01/27/17 [Last Taken Unknown] amLODIPine BESYLATE [Norvasc 2.5 mg (*)] 2.5 mg TUBE HS tab 01/27/17 [Last Taken Unknown] predniSONE 20 mg TUBE DAILY #7 tablet 01/27/17 [Last Taken Unknown] Discharge Medications: Refer to the Discharge Home Medication list for PRN reason. PICC Care - Routine: N/A - Orders Services needed: Physical Therapy, Occupational Therapy, Speech Language Pathologist Oxygen: 1-2 liters Diet Recommendation: other (peg in place/ on jevity) Diet Texture: No Oral Liquids, Non Oral Meds Tube feeding: jevity 1.5 with water flushes of 140 ml q 4 hours Additional: Please call Dr Cesar office for follow up in 2-[address] weeks with a new CT head wo. Call with any questions or concerns. No strenuous activities. Maintain blood pressure below 140 systolic (upper number). Prednisone is being used to treat gout/ stop in 7 days, continue allopurinol. - Labs/Radiology BMP Date: 02/02/17 CBC Date: 02/02/17 Imaging Orders: chest xray in 2 weeks for f/u care - Follow Up Care Current Providers and Referrals: Nino Terrell MD [Medical Doctor] - (follow up in 2-4 weeks for recheck and review of a new CT head) Patient,NotPresent [Unknown] - As per Instructions
[2017-01-27] MEDS: SENNOSIDES 17.6 MG/10 ML UDL - IF LIQUID ORDERED TUBE SCH (11:27)
--- NOTE | 2017-01-27 11:57 | GDS ---
[f rep st] DISCHARGE SUMMARY DISCHARGE DIAGNOSES: 1. Small left thalamic hemorrhage, likely secondary to being hypertensive. 2. Hypertensive emergency. 3. Bradycardia. 4. Dysphagia/severe. 5. Left ankle pain and right knee pain secondary to gout. 6. Loose stools. 7. History of laryngeal cancer, status post radiation. 8. Nicotine dependence. 9. Hypoxemia. CONSULTATIONS: During his stay: 1. Dr. Nino Terrell. 2. Dr. Nishant Horton. 3. Dr. Carlos Ribeiro. BRIEF HISTORY: The patient is a very nice 81-year-old gentleman, who was admitted and noted to have a left-sided thalamic hemorrhage secondary to hypertension. He was seen and evaluated by Dr. Terrell, who noted there is no surgical intervention indicated. This was secondary from being hypertensive. He was placed in the intensive care unit, his blood pressure was managed with nicardipine. He was eventually transferred to the floor where he had issues with swallowing and noted to have significant dysphagia. A video fluoroscopic swallow evaluation was done and noted that he was at risk for aspiration with all consistencies. He was seen and evaluated by Dr. Ribeiro. A PEG tube was placed. During his stay, he started to have more and more difficulty with ambulation. Per his , he has a history of gout but never impacted him. An x-ray was performed to evaluate his left ankle, which showed nothing acute. A trial of ibuprofen, allopurinol, and colchicine was done without any improvement. He was seen and evaluated by Dr. Horton to make sure he did not have any infectious etiology. This was not noted. He was started on prednisone yesterday with good results. Today, he will be discharged to the shelter facility for rehabilitation. He will need a repeat CT of his head in 2-4 weeks and further followup with Dr. Terrell. HOSPITAL COURSE PER PROBLEM: 1. Small left thalamic hemorrhage. This is secondary to being hypertensive. This was noted to be not surgical. He has been treated with lisinopril and Norvasc. This will be continued in the outpatient setting. 2. Hypertensive emergency. He had been on nicardipine drip in the intensive care unit. Blood pressure has stabilized. 3. Bradycardia. Improved after stopping the labetalol. 4. Dysphagia. He is status post PEG placement. He will be on Jevity. Hopefully over time, will be able to swallow better. 5. Left ankle pain and right knee pain secondary to gout. Markedly improved with prednisone. 6. Loose stools. This improved after discontinuing colchicine. He is on Jevity, which also can cause this. 7. History of laryngeal cancer with radiation. This is affecting the dysphagia. 8. Nicotine dependence. He said he will never smoke again. He does not want a patch. 9. Hypoxemia, likely nothing acute. Suspect this is secondary to atelectasis. PENDING LABORATORIES AND TESTS: None. CONDITION AT DISCHARGE: Stable. PHYSICAL EXAMINATION: VITAL SIGNS: Blood pressure is 132/59, O2 sats on room air 88%, respiratory rate 14, pulse is 75, temperature is 37 degrees Celsius. DISCHARGE MEDICATIONS: Please see the EMR. DISCHARGE INSTRUCTIONS: 1. To follow up with Dr. Nino Terrell, make an appointment. He will need a repeat CT of his head. 2. To continue the prednisone for the next 7 days and then stop and to continue on allopurinol. The allopurinol dose can be increased. 3. If he develops fever, chills, chest pain, or any type of stroke-like symptoms, return to the ER. Greater than 30 minutes discharging and coordinating care. /[id number]/MODL MTDD
== END 2017-01-27 14:30 | DRG 65 ==
LOC: F2N 21:27 → F3N 01-19 14:00
PROVIDERS: ADMIT Internal Medicine; ATTEND Internal Medicine
PROC: 0D163J4 Bypass Stomach to Cutaneous with Synthetic Substitute, Percutaneous Approach (ICD-10-PCS; principal; 2017-01-23 11:20)
DX: I61.8 Other nontraumatic intracerebral hemorrhage (principal); I16.1 Hypertensive emergency; J98.11 Atelectasis; R00.1 Bradycardia, unspecified; R13.19 Other dysphagia; M10.461 Other secondary gout, right knee; M10.472 Other secondary gout, left ankle and foot; F17.200 Nicotine dependence, unspecified, uncomplicated; R09.02 Hypoxemia; Z85.21 Personal history of malignant neoplasm of larynx; Z23 Encounter for immunization; Z66 Do not resuscitate
CPT/HCPCS: 92507-GN; 92523-GN; 92526-GN; 92610-GN; 92611-GN; 97116-GP; 97162-GP; 97166-GO; 97530-GO; 97530-GP; 97535-GO; C1729; C1769; G0009; G8996-GN-CJ; G8997-GN-CI; G9168-GN-CK; G9169-GN-CK; G9170-GN-CK; J0360; J1170; J1610; J1644; J1650; J2250; J3010; J3490; Q9967

== ENCOUNTER 2017-01-29 04:32 | Emergency (ER) | payer OTHER ==
[2017-01-29] MEDS ORDERED: HYDROGEN PEROXIDE 236 ML BOTTLE TP ONE (04:41)
--- NOTE | 2017-01-29 04:48 | EDPHY ---
H & P HPI/ROS: Chief Complaint: G-tube fell out HPI: 81-year-old male with a history of hemorrhagic stroke presenting from [facility] after he was found this morning to have his G-tube out of place. Is uncertain how long it was out. Patient was sent in for replacement of the tube. Patient has been in his normal state of health. Normal vital signs per EMS. Currently without complaint. ROS: 10 point Review of Systems is negative except as noted in the HPI. PMH: CVA Social History: No smoking, no alcohol, no recreational drug use Family History: non-contributory Physical Exam: Gen: Awake, Alert, No Distress HEENT: Nose: no rhinorrhea Eyes: PERRLA, EOMI Mouth: Moist mucosa Neck: Supple, no JVD Chest: nontender, lungs clear to auscultation Heart: S1, S2 normal, no murmur Abd: Soft, G-tube site is has some crusting with no erythema or discharge., no guarding Back: no CVA tenderness, no midline tenderness Ext: no edema, non-tender Skin: no rash Neuro: CN II-XII intact, Sensation grossly intact, Strength 5/5 in bilateral upper and lower extremities - Medical/Surgical History Hx Asthma: No Hx Chronic Respiratory Disease: No Hx Diabetes: No Hx Cardiac Disease: No Hx Renal Disease: No Hx Cirrhosis: No Hx Alcoholism: No Hx HIV/AIDS: No Hx Splenectomy or Spleen Trauma: No Other PMH: Denies - Social History Smoking Status: Current every day smoker Constitutional: Initial Vital Signs Temperature (C) 36.7 C 01/29/17 04:35 Heart Rate 59 L 01/29/17 04:35 Respiratory Rate 16 01/29/17 04:35 Blood Pressure 169/87 H 01/29/17 04:35 O2 Sat (%) 93 01/29/17 04:35 O2 Delivery Mode Room Air Allergies/Adverse Reactions: No Known Allergies Allergy (Unverified 01/18/17 19:47) Home Medications: Medication Instructions Recorded Allopurinol [Allopurinol 100 MG 100 mg TUBE DAILY tab 01/27/17 (*)] Ipratropium/Albuterol [Duoneb (*)] 3 ml IH BID PRN #0 deyvial 01/27/17 Lisinopril [Zestril 5 mg (*)] 5 mg TUBE DAILY tab 01/27/17 amLODIPine BESYLATE [Norvasc 2.5 2.5 mg TUBE HS tab 01/27/17 mg (*)] predniSONE 20 mg TUBE DAILY #7 tablet 01/27/17 Medical Decision Making ED Course/Re-evaluation: Procedure: G tube replacement. After confirming that the tube was out I replaced the G tube using a 20 Dominican G tube. After placing the tube I confirmed adequate placement by aspiration of gastric contents. Position was concerns firm with Gastrografin abdominal x- ray. There were no complications. The procedure was performed by myself. Departure - Departure Disposition: Home, Routine, Self-Care Clinical Impression: Gastrostomy tube dysfunction Condition: Good Instructions: How to Use and Care for Your PEG Tube (ED) Additional Instructions: Follow up with your doctor in 2-3 days for re-evaluation. Return to the emergency depart for increasing pain, discharge, bleeding, fevers , chills, redness, or any other concerns. Referrals: Patient,NotPresent [Unknown] - As per Instructions
[2017-01-29 04:52] VITALS: RESP 16; TEMP 98.1
[2017-01-29 06:24] VITALS: BP 165/82; PULSE 82; O2SAT 92
== END 2017-01-29 07:14 | disposition home or self-care (01) ==
LOC: EDUNIT#
PROC: 0DH63UZ Insertion of Feeding Device into Stomach, Percutaneous Approach (ICD-10-PCS; principal; 2017-01-29)
DX: K94.23 Gastrostomy malfunction (principal); F17.200 Nicotine dependence, unspecified, uncomplicated; Z86.73 Personal history of transient ischemic attack (TIA), and cerebral infarction without residual deficits

== ENCOUNTER 2018-01-25 01:20 | Emergency (ER) | payer OTHER ==
--- NOTE | 2018-01-25 01:23 | EDPHY ---
H & P Time Seen by Provider: 01/25/18 01:22 HPI/ROS: HPI CHIEF COMPLAINT: G-tube fell out HISTORY OF PRESENT ILLNESS: Patient 82-year-old male, presents emergency room by ambulance as his PEG tube fell out at some point this evening. Unclear circumstances of how it fell out. Patient denies any complaints. He arrives by ambulance with no complaints. Past Medical History: Throat cancer, CVA Past Surgical History: Peg tube Social History: Denies daily use of drugs alcohol tobacco. Family History: Noncontributory ROS REVIEW OF SYSTEMS: A comprehensive 10 point review of systems is otherwise negative aside from elements mentioned in the history of present illness. Exam Constitutional triage nursing summary reviewed, vital signs reviewed, awake/ alert. Eyes normal conjunctivae and sclera, EOMI, PERRLA. HENT normal inspection, atraumatic, moist mucus membranes, no epistaxis, neck supple/ no meningismus, no raccoon eyes. Respiratory clear to auscultation bilaterally, normal breath sounds, no respiratory distress, no wheezing. Cardiovascular rate normal, regular rhythm, no murmur, no edema, distal pulses normal. Gastrointestinal hole in the middle the abdomen where PEG tube was removed, soft, non-tender, no rebound, no guarding, normal bowel sounds, no distension, no pulsatile mass. Genitourinary no CVA tenderness. Musculoskeletal no midline vertebral tenderness, full range of motion, no calf swelling, no tenderness of extremities, no meningismus, good pulses, neurovascularly intact. Skin pink, warm, & dry, no rash, skin atraumatic. Neurologic awake, alert and oriented x 3, AAOx3, moves all 4 extremities equally, motor intact, sensory intact, CN II-XII intact, normal cerebellar, normal vision, normal speech. Psychiatric normal mood/affect. Heme/Lymph/Immune no lymphadenopathy. Differential Diagnosis: Includes but is not limited to in a particular order peg tube dysfunction, peg tube out, need for new PEG tube. Medical Decision Making: Plan for this patient his PEG tube was brought with him by EMS it is a 20 [place]an. Will try to obtain another [address] in his PEG tube site and confirmed with Gastrografin view KUB. Re-evaluation: [id number]: Multiple attempts were made to place the 20 [place]oran PEG tube back into the PEG tube tract however was unsuccessful due to most likely swelling. I had to place a 18 [place]an PEG tube in the track. This went very easily. There are no complications. The 18 [place]an PEG tube was placed into the PEG tube opening site and went in the balloon was blown up with 10 cc. The tube was confirmed with a KUB with Gastrografin view. The PEG tube appears to be in appropriate position. Source: Patient, EMS - Medical/Surgical History Hx Asthma: No Hx Chronic Respiratory Disease: No Hx Diabetes: No Hx Cardiac Disease: No Hx Renal Disease: No Hx Cirrhosis: No Hx Alcoholism: No Hx HIV/AIDS: No Hx Splenectomy or Spleen Trauma: No Other PMH: Denies - Social History Smoking Status: Current every day smoker Constitutional: Initial Vital Signs Temperature (C) 36.8 C 01/25/18 01:22 Heart Rate 77 01/25/18 01:22 Respiratory Rate 16 01/25/18 01:22 Blood Pressure 172/109 H 01/25/18 01:22 O2 Sat (%) 93 01/25/18 01:22 O2 Delivery Mode Room Air Allergies/Adverse Reactions: No Known Allergies Allergy (Unverified 01/18/17 19:47) Home Medications: Medication Instructions Recorded Allopurinol [Allopurinol 100 MG 100 mg TUBE DAILY tab 01/27/17 (*)] Ipratropium/Albuterol [Duoneb (*)] 3 ml IH BID PRN #0 deyvial 01/27/17 Lisinopril [Zestril 5 mg (*)] 5 mg TUBE DAILY tab 01/27/17 amLODIPine BESYLATE [Norvasc 2.5 2.5 mg TUBE HS tab 01/27/17 mg (*)] predniSONE 20 mg TUBE DAILY #7 tablet 01/27/17 Departure - Departure Disposition: Home, Routine, Self-Care Clinical Impression: Encounter for PEG (percutaneous endoscopic gastrostomy) Condition: Good Instructions: How to Use and Care for Your PEG Tube (ED) Additional Instructions: 1. Return emergency room if you have any worsening symptoms questions or concerns about her PEG tube. 2. Follow up with your primary care doctor. Referrals: Patient,NotPresent [Primary Care Provider] - As per Instructions Clint Osborn MD [Medical Doctor] - As per Instructions
[2018-01-25 03:22] VITALS: BP 137/89
== END 2018-01-25 03:21 | disposition home or self-care (01) ==
LOC: EDUNIT#
PROC: 0DH63UZ Insertion of Feeding Device into Stomach, Percutaneous Approach (ICD-10-PCS; principal; 2018-01-25)
PROC: 0DP63UZ Removal of Feeding Device from Stomach, Percutaneous Approach (ICD-10-PCS; principal; 2018-01-25)
DX: Z43.1 Encounter for attention to gastrostomy (principal); F17.200 Nicotine dependence, unspecified, uncomplicated; Z85.818 Personal history of malignant neoplasm of other sites of lip, oral cavity, and pharynx; Z86.73 Personal history of transient ischemic attack (TIA), and cerebral infarction without residual deficits

== ENCOUNTER 2018-01-26 16:37 | Emergency (ER) | payer OTHER ==
--- NOTE | 2018-01-26 17:21 | EDPHY ---
H & P Stated Complaint: G-tube pulled out Time Seen by Provider: 01/26/18 17:14 HPI/ROS: CHIEF COMPLAINT: Peg tube fell HISTORY OF PRESENT ILLNESS: Patient is an 82-year-old man who has had long- term PEG tube in place for history of esophageal cancer. It fell out yesterday and he came here and had a replaced. The original was a 20 [place]an but it would not fit due to swelling and so an 18 [place]an was placed. Patient and his son states that that one fell out today. They did not bring it with them. REVIEW OF SYSTEMS: Constitutional: denies: chills, fever, recent illness, recent injury EENTM: denies: blurred vision, double vision, nose congestion Respiratory: denies: cough, shortness of breath Cardiac: denies: chest pain, irregular heart rate, lightheadedness, palpitations Gastrointestinal/Abdominal: See HPI denies: abdominal pain, diarrhea, nausea, vomiting, blood streaked stools Genitourinary: denies: dysuria, frequency, hematuria, pain Musculoskeletal: denies: joint pain, muscle pain Skin: denies: lesions, rash, jaundice, bruising Neurological: denies: headache, numbness, paresthesia, tingling, dizziness, weakness Hematologic/Lymphatic: denies: blood clots, easy bleeding, easy bruising Immunologic/allergic: denies: HIV/AIDS, transplant EXAM: GENERAL: Well-appearing, well-nourished and in no acute distress. HEAD: Atraumatic, normocephalic. EYES: Pupils equal round and reactive to light, extraocular movements intact, sclera anicteric, conjunctiva are normal. ENT: TMs normal, nares patent, oropharynx clear without exudates. Moist mucous membranes. NECK: Normal range of motion, supple without lymphadenopathy or JVD. LUNGS: Breath sounds clear to auscultation bilaterally and equal. No wheezes rales or rhonchi. HEART: Regular rate and rhythm without murmurs, rubs or gallops. ABDOMEN: Nontender, left upper quadrant PEG tube site clean, slightly wet, no erythema. Soft, nontender, normoactive bowel sounds. No guarding, no rebound. No masses appreciated. BACK: No CVA tenderness, no spinal tenderness, step-offs or deformities EXTREMITIES: Normal range of motion, no pitting or edema. No clubbing or cyanosis. NEUROLOGICAL: Cranial nerves II through XII grossly intact. Normal speech, normal gait. 5/5 strength, normal movement in all extremities, normal sensation PSYCH: Normal mood, normal affect. SKIN: Warm, dry, normal turgor, no visible rashes or lesions. Source: Patient Exam Limitations: No limitations - Personal History Current Tetanus/Diphtheria Vaccine: Yes Current Tetanus Diphtheria and Acellular Pertussis (TDAP): Yes - Medical/Surgical History Hx Asthma: No Hx Chronic Respiratory Disease: Yes Hx Diabetes: Yes Hx Cardiac Disease: Yes Hx Renal Disease: No Hx Cirrhosis: No Hx Alcoholism: No Hx HIV/AIDS: No Hx Splenectomy or Spleen Trauma: No Other PMH: CVA, throat CA, HTN, COPD - Family History Significant Family History: No pertinent family hx - Social History Smoking Status: Former smoker Alcohol Use: Sober Drug Use: None Constitutional: Initial Vital Signs Temperature (C) 36.7 C 01/26/18 16:42 Heart Rate 79 01/26/18 16:42 Respiratory Rate 16 01/26/18 16:42 Blood Pressure 145/82 H 01/26/18 16:42 O2 Sat (%) 92 01/26/18 16:42 O2 Delivery Mode Room Air Allergies/Adverse Reactions: No Known Allergies Allergy (Unverified 01/26/18 16:42) Medical Decision Making ED Course/Re-evaluation: The patient's PEG tube was replaced with a 20 [place]an the 2. Gastric contents were easily aspirated. No x-rays necessary. The patient tolerated the procedure well. The we did flush it here in the department successfully. They declined imaging. Differential Diagnosis: Partial list of the Differential diagnosis considered include but were not limited to; PEG tube malfunction, dislodgement and although unlikely based on the history and physical exam, I also considered obstruction, infection. I discussed these differential diagnoses and the plan with the patient as well as the usual and expected course. The patient understands that the diagnosis is provisional and that in medicine we are not always correct and that further workup is often warranted. Usual and customary warnings were given. All of the patient's questions were answered. The patient was instructed to return to the emergency department should the symptoms at all worsen or return, otherwise to followup with the physician as we discussed. Departure - Departure Disposition: Home, Routine, Self-Care Clinical Impression: Gastrostomy tube dysfunction Condition: Fair Instructions: How to Use and Care for Your PEG Tube (ED) Referrals: JESUS SCHWARTZ [Other] - As per Instructions
[2018-01-26 17:46] VITALS: BP 140/80
== END 2018-01-26 17:46 | disposition home or self-care (01) ==
PROC: 0DH63UZ Insertion of Feeding Device into Stomach, Percutaneous Approach (ICD-10-PCS; principal; 2018-01-26)
PROC: 0DP63UZ Removal of Feeding Device from Stomach, Percutaneous Approach (ICD-10-PCS; principal; 2018-01-26)
DX: K94.23 Gastrostomy malfunction (principal); J44.9 Chronic obstructive pulmonary disease, unspecified; E11.9 Type 2 diabetes mellitus without complications; I10 Essential (primary) hypertension; Z85.818 Personal history of malignant neoplasm of other sites of lip, oral cavity, and pharynx; Z86.73 Personal history of transient ischemic attack (TIA), and cerebral infarction without residual deficits; Z87.891 Personal history of nicotine dependence

== ENCOUNTER 2018-01-28 00:54 | Emergency (ER) | payer OTHER ==
[2018-01-28 01:10] VITALS: BP 138/77
--- NOTE | 2018-01-28 01:52 | EDPHY ---
H & P Stated Complaint: G-TUBE FELL OUT 3 TIMES Time Seen by Provider: 01/28/18 01:50 HPI/ROS: HPI The patient presents with G-tube which is dislodged several hours ago. The patient awoke to find that his abdomen was wet and his tube was out. The balloon was intact. This was just placed a few days ago and he was transferred from an 18 [place]ian to a 20 Ghanaian. He is not sure how this came out. He does not have any localized bleeding. He feels well otherwise.. REVIEW OF SYSTEMS Constitutional: No fever, no chills. Eyes: No discharge. ENT: No sore throat. Cardiovascular: No chest pain, no palpitations. Respiratory: No cough, no shortness of breath. Gastrointestinal: No abdominal pain, no vomiting. Genitourinary: No hematuria. Musculoskeletal: No back pain. Skin: No rashes. Neurological: No headache. PMHx: History of esophageal cancer Soc Hx: Lives at home with his son who provides his medical care PHYSICAL General Appearance: Alert, no distress Eyes: Pupils equal and round no pallor or injection ENT, Mouth: Mucous membranes moist Respiratory: There are no retractions, lungs are clear to auscultation Cardiovascular: Regular rate and rhythm Gastrointestinal: Abdomen is soft and non-tender, stoma intact, no masses, bowel sounds normal Neurological: A&O, moves all extremities Skin: Warm and dry, no rashes Musculoskeletal: Neck is supple non tender Extremities: symmetrical, full range of motion Psychiatric: Patient is oriented X 3, there is no agitation Source: Patient, Family Exam Limitations: No limitations - Personal History Current Tetanus Diphtheria and Acellular Pertussis (TDAP): Yes - Medical/Surgical History Hx Asthma: No Hx Chronic Respiratory Disease: Yes Hx Diabetes: No Hx Cardiac Disease: Yes Hx Renal Disease: No Hx Cirrhosis: No Hx Alcoholism: No Hx HIV/AIDS: No Hx Splenectomy or Spleen Trauma: No Other PMH: CVA, throat CA, HTN, COPD, PEG tube - Social History Smoking Status: Former smoker Constitutional: Initial Vital Signs Temperature (C) 37.0 C 01/28/18 01:07 Heart Rate 98 01/28/18 01:07 Respiratory Rate 16 01/28/18 01:07 Blood Pressure 138/77 H 01/28/18 01:07 O2 Sat (%) 92 01/28/18 01:07 O2 Delivery Mode Room Air Allergies/Adverse Reactions: No Known Allergies Allergy (Verified 01/28/18 01:07) Home Medications: Medication Instructions Recorded NK [No Known Home Meds] 01/28/18 Medical Decision Making - Diagnostics Imaging Results: KUB shows contrast within the lumen of the stomach, interpreted by me, radiology interpretation is pending. Imaging: I viewed and interpreted images myself Differential Diagnosis: This is an 82-year-old man who presents with G-tube dislodgement which occurred earlier today. His 20 [place]ian G-tube had a deflated though functional balloon but somehow fell out. He does not have any signs of trauma. In the emergency department we replaced the tube without difficulty and have used a larger 22 [place]ian. I have offered him suturing, however he declines. He will be discharged with his son. Departure - Departure Disposition: Home, Routine, Self-Care Clinical Impression: Gastrostomy tube dysfunction Condition: Good Instructions: How to Use and Care for Your PEG Tube (ED) Additional Instructions: Please return to the emergency department if your worse in any way. Referrals: JESUS SCHWARTZ [Other] - As per Instructions
== END 2018-01-28 02:10 | disposition home or self-care (01) ==
PROC: 0DH63UZ Insertion of Feeding Device into Stomach, Percutaneous Approach (ICD-10-PCS; principal; 2018-01-28)
DX: K94.23 Gastrostomy malfunction (principal); J44.9 Chronic obstructive pulmonary disease, unspecified; I10 Essential (primary) hypertension; Z85.01 Personal history of malignant neoplasm of esophagus; Z85.819 Personal history of malignant neoplasm of unspecified site of lip, oral cavity, and pharynx; Z86.73 Personal history of transient ischemic attack (TIA), and cerebral infarction without residual deficits; Z87.891 Personal history of nicotine dependence